=== PATIENT | female | born 1965 | race Caucasian/White ===

== ENCOUNTER 2024-06-21 10:28 | Outpatient (CLI) | payer OTHER, BC, SELFPAY | END 2024-06-21 10:29 | disposition home or self-care (01) | PROVIDERS: PCP Family Medicine; Visit Provider Family Medicine | DX: S29.9XXA Unspecified injury of thorax, initial encounter (principal); V43.52XA Car driver injured in collision with other type car in traffic accident, initial encounter; Y92.410 Unspecified street and highway as the place of occurrence of the external cause | CPT/HCPCS: A0425; A0427 ==

== ENCOUNTER 2024-06-21 11:01 | Emergency (ER) | payer OTHER, BC, SELFPAY ==
[2024-06-21] VITALS (8 sets, daily range): BP systolic 153–169; BP diastolic 81–93; PULSE 97–110; RESP 14–31; TEMP 36.5; O2SAT 94–98; BMI 38.4
--- OUTSIDE RECORDS SUMMARY | 2024-06-21 11:03 | XMS_ITS | Encounter Summary ---
Author Organization [facility] Address [address] [place] [address] Care Team Providers Care Seafood Technology Specialist Name Role Phone Genet Hunt MD Unavailable [phone] Genet Hunt MD Primary Care Provider Zoraida Conner MD Unavailable [phone] Germaine Bernal MD Unavailable [phone] [place] [address] Primary Care Provider Tasneem Mills MD Unavailable [phone] Zoraida Conner MD Unavailable [phone] Star Montanez MD Unavailable [phone] Popeye Love MD Primary Care Provider [phone] Shan Coronel MD Unavailable Donato Mcgarry MD Unavailable [phone] Encounter Details Date Type Department Care Team (Late st Contact Info) Description 08/09/2019 MyC Medical Advice [facility] General Surgery [address] [place] [address] Henny Good Social History Tobacco Use Types Packs/Day Years Used Date Smoking Tobacco: Never Smokeless Tobacco: Never Alcohol Use Standard Drinks/Week Comments Not Currently 0 (1 standard drink = 0.6 oz pur e alcohol) PHQ-2 Answer Date Recorded PHQ-2 Score 0 09/20/2018 Comments Unknown Sex and Gender Information Value Date Recorded Sex Assigned at Female 09/17/2018 11:52 AM CDT Legal Sex Female 8:28 AM CDT Gender Identity Female 09/17/2018 11:52 AM CDT Sexual Orientation Straight 09/17/2018 11 :52 AM CDT COVID-19 Exposure Response Date Recorded In the last month, have you been in contact with someone who was confirmed or suspected to have Coronavirus / COVID-19? No / Unsure 07/26/2019 10:54 AM CDT documented as of this encounter Plan of Treatment Not on file documented as of this encounter Visit Diagnoses Not on filedocumented in this encounter Care Teams Seafood Technology Specialist Relationship Specialty Start Date End Date Genet Hunt MD PCP - General Student in organized health care education/training program 07/29/18 09/11/19 Germaine Bernal MD [address] [address] PCP - oncology 09/12/[address] [address] PCP - General 09/18/19 01/24/20 Popeye Love MD [address] [place] [id number] PCP - General Family Medicine 01/25/20 Genet Hunt MD Resident Student in organized health care education/training program 07/29/18 Zoraida Conner MD [address] [facility] [address] [place], [place] [address] Gynecologic Oncology 07/29/18 Tasneem Mills MD [address] [facility] [address] [place], [place] [address] Assigned Endocrinology Provider 01/12/20 08/03/20 Zoraida Conner MD [address] [facility] [address] [place], [place] [address] Assigned Cancer Care Provider 01/12/20 02/03/20 Star Montanez MD [address] [facility] [address] [place], [place] [address] Assigned Surgical Provider 01/12/20 06/04/20 Shan Coronel MD [address] [facility] [address] [place], [place] [address] Assigned Cancer Care Provider 02/04/20 07/12/21 Donato Mcgarry MD [address] [facility] [address] [place], [place] [address] Assigned Surgical Provider 06/05/20 10/17/21 documented as of this encounter
--- OUTSIDE RECORDS SUMMARY | 2024-06-21 11:03 | XMS_ITS | Encounter Summary ---
Author Organization [facility] Address [address] [place] [address] Care Team Providers Care Analysis Director Name Role Phone Genet Hunt MD Unavailable [phone] Genet Hunt MD Primary Care Provider Zoraida Conner MD Unavailable [phone] Germaine Bernal MD Unavailable [phone] [place] [address] Primary Care Provider Tasneem Mills MD Unavailable [phone] Zoraida Conner MD Unavailable [phone] Star Montanez MD Unavailable [phone] Popeye Love MD Primary Care Provider [phone] Shan Coronel MD Unavailable Donato Mcgarry MD Unavailable [phone] Encounter Details Date Type Department Care Team (Late st Contact Info) Description 08/03/2019 MyC Medical Advice [facility] Cancer Center [facility] [address] [facility] [address] [place] [phone] Mare Stearns RN Social History Tobacco Use Types Packs/Day Years [...] on filedocumented in this encounter Care Teams Analysis Director Relationship Specialty Start Date End Date Genet Hunt MD PCP - General Student in organized health care education/training program 07/29/18 09/11/19 Germaine Bernal MD [address] [address] PCP - oncology 09/12/[address] [address] PCP - General 09/18/19 01/24/20 Popeye Love MD [address] [place] [id number] PCP - General Family Medicine 01/25/20 Genet Hunt MD Resident Student in [facility] health care education/training program 07/29/18 Zoraida Conner MD [address] [facility] [address] [place], [place] [address] Gynecologic Oncology 07/29/18 Tasneem Mills MD [address] [facility] [address] [place], [place] [address] Assigned Endocrinology Provider 01/12/20 08/03/20 Zoraida Conner MD [address] [facility] [address] [place], [place] [address] Assigned Cancer Care Provider 01/12/20 02/03/20 Star Montanez MD [address] [facility] [address] [place], [place] [id number] Assigned Surgical Provider 01/12/20 06/04/20 Shan Coronel MD [address] [facility] [address] [place], [place] [address] Assigned Cancer Care Provider 02/04/20 07/12/21 Donato Mcgarry MD [address] [facility] [address] [place] [address] Assigned Surgical Provider 06/05/20 10/17/21 documented as of this encounter
--- OUTSIDE RECORDS SUMMARY | 2024-06-21 11:03 | XMS_ITS | Clinical Summary ---
Author Organization [facility] Address [facility] [place] [address] Care Team Providers Care Auto Driver Name Role Phone Pcp, No Primary Care Provider Unavailabl e Allergies No known active allergies Medications prochlorperazin e (COMPAZINE) 10 mg tablet Take 10 mg by mouth every 6 hours if needed for Nausea/Vomit ing. Active LORazepam (ATIVAN) 0.5 mg tab Take 0.5 mg by mouth every 4 hours if needed for Nausea/Vomit ing. Active durable medical equipment (DME)Indication s:Open wound of abdominal wall, subsequent encounter 1 inch nugauze x15 rolls refill 3 15 Each 3 01/19/2018 Active Sodium Chloride (SALINE WOUND WASH) 0.9 % solnIndications :Wound infection Rinse wound daily with saline. 3 Bottle 3 09/06/2018 Active rivaroxaban (XARELTO) 20 mg tabletIndicatio ns:Pulmonary embolus, right (HC) Take 1 tablet by mouth once daily with evening meal. 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 Colostomy complication 10/14/2017 Impaired fasting glucose 08/23/2013 HTN (hypertension) 02/24/2012 Resolved Problems Problem Noted Date Diagnosed Date Resolved Date Colostomy complication 10/27/201704/18 Disorder of stoma 10/14/2017 10/14/2017 Immunizations Immunization Administration Dates Next Due Influenza Virus, Unspecified 01/08/2017, 01/05/2008,01/05/2008,2006 Influenza, CCIIV3 (Age >=6 M O) (Egg Free) 01/04/2013 Influenza, IIV3 (Age >=3 years) 01/09/20 17,12/30/2015,01/02/2015,2011,01/07/2011,01/05/2008,01/27/2007 Influenza, IIV4 12/08/2018,12/15/2017 Tdap 01/07/2012 Zoster (Shingrix-RZV, recombinant) 03/01/2019, Family History Medical History Relation Name Comments Other Brother 1 AIDS No Known Problems Brother 2 Cancer-colon Father Coronary artery disease Father Dementia Father Diabetes Father preDM Heart failure Father hypertrophic c ardiomyopathy Diabetes type II Mother Hypertension Mother Relation Name Status Comments Brother 1 Brother 2 Father Mother Social History Tobacco Use Types Packs/Day Years Used Date Smoking Tobacco: Never Smokeless Tobacco: Never Tobacco Cessation:Counseling Given: Yes Alcohol Use Standard Drinks/Week Comments No 0 (1 standard drink = 0.6 oz pur e alcohol) PHQ-2 Answer Date Recorded PHQ-2 Score 0 05/21/2018 Social Connections Answer Date Recorded Frequency of Communication with Friends and Fami ly Not on file 03/18/2021 Financial Resource Strain Answer Date R ecorded Difficulty of Paying Living Expenses Not on file 03/18/2021 Difficulty of Paying Living Expenses Not on file 03/18/2021 Comments No Sex and Gender Information Value Date Recorded Sex Assigned at Not on file Legal Sex Female 6:39 AM HOT STICK WORKER Gender Identity Not on file Sexual Orientation Not on file Occupation Industry Job Start Date Job End Date homemaker Not on file Not on file Not on file Obstetrics History Para Term AB IAB SAB Ectopic Multiple Livin g Live Births 5 4 1 1 4 Date Outcome GA Total Labor Labor/2nd/3rd Weight Sex Type Anes PTL Uyen A1 A5 Name Clin Para Para Para Para SAB Last Filed Vital Signs Vital Sign Reading Time Taken Comments Blood Pressure 125/78 03/28/2019 1:11 PM HOT STICK WORKER Pulse 76 03/28/2019 1:11 PM HOT STICK WORKER Temperature 36.6 C (97.9 F) 12/08/2018 8:39 AM CDT Respiratory Rate 16 05/18/2018 2:19 PM HOT STICK WORKER Oxygen Saturation 99% 03/28/2019 1:11 PM HOT STICK WORKER Inhaled Oxygen Concentration - - Weight 82.4 kg (181 lb 9.6 oz) 03/28/2019 1:11 P M HOT STICK WORKER Height 157.2 cm (5' 1.9) 03/28/2019 1:11 PM HOT STICK WORKER Body Mass Index 33.32 03/28/2019 1:11 PM HOT STICK WORKER Plan of Treatment Health Maintenance Due Date Last Done Comments HIV for age 15-65 1981 Hepatitis C screening for ag e 18-79 02/10/1984 Pneumococcal series for age 50+ (1 of 1 - PCV) 02/10/2016 Lipids for age 45-75 03/02/2017 03/02/2012 Depression screening for age 12+ 08/25/2018 08/25/2017, 08/26/2016, 08/26/2016, Additional history exists BMI (ht and wt on same day) for age 18+ 03/28/2020 03/28/2019, 12/08/2018, 05/23/2018, Additional history exists Mammogram for age 45-75 09/06/2020 09/07/19 20, 08/31/2018, 08/25/2017 Tetanus booster 01/06/2022 01/07/2012, 01/07/2012 COVID-19 vaccine series ( season) 2023 Influenza Vaccine (Season Ended) 2024 12/08/2018, 12/15/2017, 01/08/2017, Additional history exists Tdap Completed 01/07/2012 Zoster (shingles) series for age 50+ Completed 03/01/2019, 12/08/2018 Procedures Procedure Name Priority Date/Time Associated Diagnosis Comments SCAN-MAMMOGRAPHY REPORT 09/07/2019 12:00 AM CDT LIPID PANEL W REFLEX MEASURED LDL Routine 03/02/2012 9:35 AM HOT STICK WORKER Screening, lipid from Last 3 Months or Most Recently Relevant to Health Maintenance Results * SCAN-MAMMOGRAPHY REPORT (09/07/2019 12:00 AM CDT) Anatomical Region Laterality Modality Other us Scanner OTHER Final Result * (ABNORMAL) LIPID PANEL W REFLEX MEASURED LDL (03/02/2012 9:35 AM HOT STICK WORKER) CHOLESTEROL,TOTAL 166 100 - 199 mg/dL 03/02/2012 10:03 AM [facility] TRIGLYCERIDES 175(H) <150 mg/dL 03/02/2012 10:03 AM [facility] HDL CHOLESTEROL 35(L) >40 mg/dL 2 10:03 AM [facility] NON-HDL CHOLESTEROL 131 <145 mg/dl 03/02/2012 10:03 AM [facility] CHOL/HDL RATIO 4.74(H) <4.50 03/02/2012 10:03 AM [facility] LDL CHOLESTEROL 96 <=130 mg/dL 03/02/2012 10:03 AM [facility] PATIENT STATUS FASTING 03/02/2012 10:03 AM [facility] Blood specimen (specimen) BLOOD SPECIMEN / Unknown 03/02/2012 9:35 AM HOT STICK WORKER 03/02/2012 9:35 AM HOT STICK WORKER us Brayan Mcghee MD CHEMISTRY Final Re sult [facility] [address] [place] [address] from Last 3 Months or Most Recently Relevant to Health Maintenance Additional Health Concerns Infection Onset Date Last Indicated ESBL 05/18/2018 05/18/2018 Insurance MEDICAID [employer] [place] [place] Advance Directives * Full Code (Latest Code Status on File) Date Activated Date Inactivated Comments 11/18/2017 9:01 AM 11/19/2017 2:35 AM Question Answer Comments Code Status Discussion: Not Discussed * Full Code Date Activated Date Inactivated Comments 10/14/2017 8:50 PM 10/19/2017 8:26 PM Care Teams Auto Driver Relationship Specialty Start Date End Date Pcp, No . PCP - General 03/27/24
--- OUTSIDE RECORDS SUMMARY | 2024-06-21 11:03 | XMS_ITS | Clinical Summary ---
Author Organization [facility] Address [address] [place] [address] Care Team Providers Care Discharge Door Operator Name Role Phone Deonna Murdock M.D. Primary Care Provider [phone] Source Comments Patient records contain information from all sites at [facility]. For routine questions regarding patient records, call [phone] during business hours, M-F 8:00 AM - 5:00 PM Central Time. Record requests for emergency care only can be directed to [phone] at any time.[facility] Allergies Active Allergy Reactions Criticality Noted Date Comments Adhesive Other (see comments) 05/29/2020 Redness and sore Medications UNABLE TO FIND Med Name: Probiotics daily - [employer] brand Sven 2 daily Active cholecalciferol , vitamin D3, 75 mcg (3,000 unit) tablet Take by mouth daily. 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 Herniorrhaphy Incisional Status Post 06/13/2020 Dermatitis 10/14/2017 Cancer Colon Personal History 09/25/2017 Cancer Staging:Pathologic:Stage IIIC(pT3, pN2b, cM0) - Signed by César Ramachandran M.B.B.SAllyson on 10/01/2022 Overview (06/07/2020): Added automatically from request for surgery [id number] Impaired Fasting Glucose 08/23/2013 Hypertension Essential Primary 02/24/2012 Resolved Problems Problem Noted Date Diagnosed Date Resolved Date Abscess Abdominal Wall 06/13/202007/08 Candidiasis Of Skin And Nail 10/15/2017 10/31/2021 Complication Colostomy 10/14/201707/08 Anemia 10/09/2017 10/31/2021 Other Peritonitis 09/25/2017 07/08/2020 Other Pulmonary Embolism Wit hout Acute Cor Pulmonale 09/23/2017 07/08/2020 Overview (06/07/2020): Without DVT Without DVT Urinary Tract Infection Site Not Specified 09/23/2017 07/08/2020 Acute Respiratory Failure 09/23/2017 Other Specified Diseases Of Intestine 09/16/2017 07/08/2020 Hypokalemia 09/16/2017 07/08/2020 Dehydration 09/16/2017 07/08/2020 Acidosis Unspecified 09/16/2017 021 Nausea And Vomiting 09/15/2017 07/09/19 21 Immunizations Immunization Administration Dates Next Due DTaP, Unspecified 01/07/2012 HepB Adult (HEPLISAV-B) 11/12/2021,10/09/2021 Influenza TIV (IM) 01/08/2017, 6,01/02/2015,2012,01/04/2012,01/07/2011,01/05/2008,1 03/29/2006 Influenza, Injectable, Mdck, Preservative Free, Quadrivalent 01/04/2013 Influenza, Seasonal, Injectable 01/09/20 17,12/30/2015,01/02/2015,2011,01/07/2011,01/09/2010,01/05/2008,1 03/29/2006 Influenza, Unspecified 12/30/2019,2016,01/05/2008,2006 RZV (SHINGRIX) 03/01/2019,12/08/2018 Tdap 12/11/2022,01/07/2012 influenza trivalent vaccine (6 months and older)(PF) 01/07/2024,12/17/2020 influenza vaccine QV(FLUBLOK ) (18 years or older) (PF) 01/07/2022 influenza vaccine quad (FLUZONE/FLUARIX) (6 months and older)(PF) 01/09/2023,12/17/2020,01/08/2020,2018,12/15/2017 Family History Medical History Relation Name Comments Dementia Father Nik Marcelo Rectal cancer Father Nik Marcelo Diabetes Mother Bere Marcelo Hypertension Mother Bere Marcelo Relation Name Status Comments Father Nik Marcelo Mother Bere Marcelo Social History Tobacco Use Types Packs/Day Years Used Date Smoking Tobacco: Never Smokeless Tobacco: Never Tobacco Cessation:Counseling Given: Yes Alcohol Use Standard Drinks/Week Comments Yes 0 (1 standard drink = 0.6 oz pur e alcohol) 1- yearly [facility] Utilities Answer Date Recorded In the past 12 months has e [employer] gas, oil, or water indoo.rs threatened to shut off services in your home? No 02/25/2024 Humiliation, Afraid, Rape, and Kick questionnair e Answer Date Recorded Within the last year, have y ou been afraid of your partner or ex-partner? No 11/06/2021 Within the last year, have y ou been humiliated or emotionally abused in other ways by your partner or ex-partner? No Within the last year, have y ou been kicked, hit, slapped, or otherwise physically hurt by your partner or ex-partner? No 11/06/2021 Within the last year, have y ou been raped or forced to have any kind of sexual activity by your partner or ex-partner? No 11/06/2021 Social Connection and Isolation Panel [NHANES] A nswer Date Recorded In a typical week, how many times do you talk on the phone with family, friends, or neighbors? Once a week 11/07/19 22 How often do you get togethe r with friends or relatives? Once a week 11/06/2021 How often do you attend chur ch or jainism services? 1 to 4 times per year 11/06/2021 Do you belong to any clubs o r organizations such as confucianism groups, unions, fraternal or athletic groups, or school groups? No 11/06/2021 How often do you attend meet ings of the clubs or organizations you belong to? Never 11/06/2021 Are you , , di vorced, , never , or living with a partner? 11/06/2021 AUDIT-C Answer Date Recorded Q1: How often do you have a drink containing alc ohol? Never 11/06/2021 Average Number of Drinks Not on file 022 Frequency of Binge Drinking Not on file 10/20 Overall Financial Resource Strain (CARDIA) Answe r Date Recorded How hard is it for you to pa y for the very basics like food, housing, medical care, and heating? Not hard at all 12/06/2022 PHQ-2 Answer Date Recorded PHQ-2 Score 0 03/03/2024 [facility] - Occupational Stress Questionnaire Answer Date Recorded Do you feel stress - tense, restless, nervous, or anxious, or unable to sleep at night because your mind is troubled all the time - these days? Only a little 11/06/2021 Exercise Vital Sign Answer Date Recorde d On average, how many days pe r week do you engage in moderate to strenuous exercise (like a brisk walk)? 3 days 12/27/2023 On average, how many minutes do you engage in exercise at this level? 20 min 12/27/2023 Hunger Vital Sign Answer Date Recorded Within the past 12 months, y ou worried that your food would run out before you got the money to buy more. Never true 02/25/20 24 Within the past 12 months, t he food you bought just didn't last and you didn't have money to get more. Never true 02/25/2024 PRAPARE - Transportation Answer Date Re corded In the past 12 months, has l ack of transportation kept you from medical appointments or from getting medications? No 08/2023 In the past 12 months, has l ack of transportation kept you from meetings, work, or from getting things needed for daily living? No 02/25/2024 Nutrition Answer Date Recorded On average, how many serving s of fruits and vegetables do you eat per day (serving size is equal to 1 cup or approximately the size of a tennis ball)? 0-2 12/27/2023 Dental Answer Date Recorded Dental: Regular Dentist Yes 06/09/19 Employment Answer Date Recorded Employment status N/A 12/27/2023 Housing Stability Answer Date Recorded What is your living situation today? [facility] 02/25/2024 Education Answer Date Recorded What is the highest level of school you have completed or the highest degree you have received? 12th grade 06/08/2020 Comments No Sex and Gender Information Value Date Recorded Sex Assigned at Female 12/02/2020 7:53 PM CDT Legal Sex Female 9:24 AM ABAP DEVELOPER Gender Identity Female 05/29/2020 7:34 PM ABAP DEVELOPER Sexual Orientation Straight 05/29/2020 7: 34 PM ABAP DEVELOPER Last Filed Vital Signs Vital Sign Reading Time Taken Comments Blood Pressure 117/86 03/03/2024 2:45 PM ABAP DEVELOPER Pulse 94 03/03/2024 2:45 PM ABAP DEVELOPER Temperature 36.8 C (98.3 F) 03/03/2024 2:45 PM ABAP DEVELOPER Respiratory Rate 18 03/03/2024 2:45 PM ABAP DEVELOPER Oxygen Saturation 97% 03/03/2024 2:45 PM ABAP DEVELOPER Inhaled Oxygen Concentration - - Weight 98.4 kg (217 lb) 03/03/2024 2:45 PM ABAP DEVELOPER Height 157 cm (5' 1.81) 03/03/2024 2:45 PM ABAP DEVELOPER Body Mass Index 39.93 03/03/2024 2:45 PM ABAP DEVELOPER Plan of Treatment Upcoming Encounters Date Type Department Care Team (Late st Contact Info) Description 07/05/2024 8:30 AM CDT Appointment Department of Laboratory Medicine in [place], [place] [address] [place] [address] César Ramachandran M.D. [address] [place] [address] Health Maintenance Due Date Last Done Comments Hepatitis C Screening 1965 Pneumococcal vaccine (50+ years) (1 of 1 - PCV) 02/10/2016 COVID-19 Vaccine ( - season) 2023 07/21/2021, 12/06/2020, 11/15/2020 Depression Screening (Annual PHQ-2) 03/22/2024 Fasting Glucose for Diabetes Screening 01/04/2025 01/05/2024, 12/24/2023, 10/04/2023, Additional history exists Mammogram 01/04/2025 01/05/2024, 10/20, 10/01/2021, Additional history exists Office Visit for Blood Pressure Check / Re-check 03/03/2025 03/03/2024, 12/11/2022, 12/11/2022 Visit: Chronic Disease, age 18+ 03/03/2025 03/03/2024, 10/09/2021 Lipid (Cholesterol) Screening 06/13/2025 06/13/2020 DTaP,Tdap,and Td Vaccines (4 - Td or Tdap) 12/11/2032 12/11/2022, 01/07/2012, 01/07/2012 Zoster Vaccines Completed 03/01/2019, 12/08/2018 Colonoscopy Discontinued 11/28/2020 Colorectal Cancer Surveillance Discontinued Hepatitis B Vaccines Completed 11/12/2021, 10/10/19 22 Influenza Vaccine Completed 01/07/2024, , 01/07/2022, Additional history exists CT Colonography Discontinued Cologuard Discontinued IPV Vaccines Aged Out No longer eligi ble based on patient's age to complete this topic Medical Devices Implanted Type Area Search Optimization Analyst Device Identifier Shelf Expiration Date Model / Serial / Lot Hardware E.G. Pins/Screws/Ro ds Hardware e.g. pins/screws/ rods Mouth Description:RETAINER Mesh Or Patch Mesh or Patch Abdomen Explanted Type Area Search Optimization Analyst Device Identifier Shelf Expiration Date Model / Serial / Lot Implantable Port Explanted:Qty: 1 on 10/22/2021 by Silvio Eduardo M.D. at [facility] Implantable Port Left: Chest [employer] 0 / / Procedures Procedure Name Priority Date/Time Associated Diagnosis Comments COMPREHENSIVE METABOLIC PANEL, S/P Routine 01/05/2024 10:45 AM CDT Malignant Neoplasm Of Colon (HCC) BI BREAST SCREENING BILATERAL WITH TOMOSYNTHESIS RAD - Routine (most inpatients and all outpatients) 01/05/2024 10:33 AM CDT Screening Mammogram Average Risk Patient COLONOSCOPY 11/28/2020 11:55 AM CDT LIPID PANEL, S Routine 06/13/2020 11:23 AM CDT Health Maintenance Examination Adult from Last 3 Months or Most Recently Relevant to Health Maintenance Results * (ABNORMAL) Comprehensive Metabolic Panel (01/05/2024 10:45 AM CDT) Pathologist [facility] Potassium, P 3.9 3.6 - 5.2 mmol/L 01/05/2024 11:21 AM CDT NPRG Sodium, P 136 135 - 145 mmol/L 01/05/2024 11:21 AM CDT NPRG Chloride, P 101 98 - 107 mmol/L 01/05/2024 11:21 AM CDT NPRG Bicarbonate, P 23 22 - 29 mmol/L 01/05/2024 11:21 AM CDT NPRG Anion Gap, P 12 7 - 15 01/05/2024 11:21 AM CDT NPRG BUN (Blood Urea Nitrogen), P 18 6 - 21 mg/dL 01/05/2024 11:21 AM CDT NPRG Creatinine 0.90 0.59 - 1.04 mg/dL 01/05/2024 11:21 AM CDT NPRG Estimated GFR (eGFR) 75 >=60 mL/min/BS A 01/05/2024 11:21 AM CDT NPRG Comment: Estimated GFR calculated using the 2020 CKD_EPI creatinine equation. Calcium, Total, P 9.9 8.6 - 10.0 mg/dL 01/05/2024 11:21 AM CDT NPRG Glucose, P 93 70 - 140 mg/dL 01/05/2024 11:21 AM CDT NPRG Protein, Total, P 7.9 6.3 - 7.9 g/dL 01/05/2024 11:21 AM CDT NPRG Albumin, P 4.6 3.5 - 5.0 g/dL 01/05/2024 11:21 AM CDT NPRG Aspartate Aminotransferase (AST), P 47(H) 8 - 43 U/L 01/05/2024 11:21 AM CDT NPRG Alkaline Phosphatase, P 73 35 - 104 U/L 01/05/2024 11:21 AM CDT NPRG Alanine Aminotransferase (ALT), P 53(H) 7 - 45 U/L 01/05/2024 11:21 AM CDT NPRG Bilirubin, Total, P 1.2 0.0 - 1.2 mg/dL 01/05/2024 11:21 AM CDT NPRG Blood (Blood, Venous) 01/05/2024 10:45 AM CDT 01/05/2024 10:47 AM CDT us César Ramachandran M.D. LAB BLOOD ADD-ON Final Resul t [facility] [address] [place] [address], [facility] NPRG [facility] [address] [place] [address] * BI Breast Screening Bilateral with Tomosynthesis (01/05/2024 10:33 AM CDT) Anatomical Region Laterality Modality Breast, Breast Imaging RST L OS, Breast Imaging ARZ LOS, Breast Imaging FLA LOS Bilateral Mammography Impressions 01/05/2024 12:23 PM CDT Benign. RECOMMENDATION: Annual Screening Mammogram ASSESSMENT: BI-RADS: 2: Benign. Narrative 01/05/2024 12:23 PM CDT EXAM: BI BREAST SCREENING BILATERAL WITH TOMOSYNTHESIS Current study was evaluated with a Computer Aided Detection (CAD) system. INDICATION: Screening mammogram. COMPARISON: Prior exam(s) were available and reviewed for comparison. DENSITY: b. There are scattered areas of fibroglandular density. FINDINGS: No findings of malignancy. No significant change since prior exam. Procedure Note Walker Harp M.D. - 01/05/2024 EXAM: BI BREAST SCREENING BILATERAL WITH TOMOSYNTHESIS Current study was evaluated with a Computer Aided Detection (CAD) system. INDICATION: Screening mammogram. COMPARISON: Prior exam(s) were available and reviewed for comparison. DENSITY: b. There are scattered areas of fibroglandular density. FINDINGS: No findings of malignancy. No significant change since priorexam. IMPRESSION: Benign. RECOMMENDATION: Annual Screening Mammogram ASSESSMENT: BI-RADS: 2: Benign. us Deonna Murdock M.D. [facility] BI PROCEDURES Final Res ult * COLONOSCOPY (11/28/2020 11:55 AM CDT) Narrative Procedure Note Sampson Redmond M.D. - 11/28/2020 11:55 AM CDT [facility] Patient Name: Cathie Zeng Procedure Date: 11/28/2020 11:55 AM Date of : 1965 Age: 55 Gender: Female Procedure: Colonoscopy Providers: Sampson Redmond MD, Deonna Murdock (Ordering Provider) Referring Provider: Deonna Murdock Pre-op Diagnoses: High risk colon cancer surveillance: Personal history of colon cancer Post-op Diagnoses: - Friability with contact bleeding in the sigmoid colon. Biopsied. - Friability with contact bleeding in the descending colon.Biopsied. - Stool in the rectum. - The examination was otherwise normal. Recommendation: - Discharge patient to home. - Resume previous diet. - Continue present medications. - Await pathology results. Findings: The perianal and digital rectal examinations were normal. A diffuse area of mildly friable mucosa with contact bleeding wasfound in the sigmoid colon. Biopsies were taken with a cold forceps for histology. Verification of patient identification for the specimenwas done by the physician and nurse using the patient's name, dateand medical record number. Estimated blood loss was minimal. A diffuse area of mildly friable mucosa with contact bleeding wasfound in the descending colon. Biopsies were taken with a cold forceps for histology. Verification of patient identification for the specimenwas done by the physician and nurse using the patient's name, dateand medical record number. Estimated blood loss was minimal. A moderate amount of stool was found in the rectum, makingvisualization difficult. Lavage of the area was performed using a moderate amountof sterile water, resulting in clearance with fair visualization. The exam was otherwise without abnormality. Exudate was found in the sigmoid colon and in the descending colon. Medicines: Monitored Anesthesia Care Estimated Blood Loss: Estimated blood loss was minimal. Complications: No immediate complications. Procedure Details: The patient was seen, evaluated, and history reviewed. Airway and heart and lung exams were performed and were satisfactory for plannedsedation care. The risks, benefits and alternatives for the procedure and sedation were discussed andinformed consent was obtained. A procedural pause was conducted in the presence of assisting personnelto verify the correct patient identity and procedureto be performed. Throughout the procedure, the patient's blood pressure, pulse, and oxygen saturations were monitored continuously. The Colonoscope was introduced under directvision through the anus and advanced to the surgicalstoma. The colonoscopy was performed with moderate difficulty due to restricted mobility of thecolon. Successful completion of the procedure was aidedby lavage. The patient tolerated the procedure well. The quality of the bowel preparation was adequateto identify polyps. The quality of the bowel preparation was evaluated using the BBPS ([place] Bowel Preparation Scale) with scores of: RightColon = 3, Transverse Colon = 3 and Left Colon = 3(entire mucosa seen well with no residual staining, small fragments of stool or opaque liquid). The totalBBPS score equals 9. Sedation: Anesthesia was administered by an anesthesia professional. Thefollowing parameters were monitored: oxygen saturation, heart rate, blood pressure, respiratory rate, EKG, adequacy of pulmonary ventilation,and response to care. Sampson Redmond MD 11/28/2020 12:27:26 PM This report has been signed electronically. Number of Addenda: 0 Note Initiated On: 11/28/2020 11:55 AM us Deonna Murdock M.D. GI PROCEDURE ORDERABLES Fin al Result * (ABNORMAL) Lipid Panel (06/13/2020 11:23 AM CDT) Cholesterol, Total 198 mg/dL 2020 12:47 PM CDT NPRG Comment: ----REFERENCE VALUE---- Desirable: < 200 Borderline high: 200 - 239 High: > or = 240 Triglycerides 176(H) mg/dL 06/13/2020 12:47 PM CDT NPRG Comment: ----REFERENCE VALUE---- Normal: <150 Borderline high: 150-199 High: 200-499 Very high: > or =500 Cholesterol, HDL 88 >=50 mg/dL 06/14/19 12:47 PM CDT NPRG Calculated LDL 75 mg/dL 06/13/2020 12:47 PM CDT NPRG Comment: ----REFERENCE VALUE---- Desirable: <100 Above Desirable: 100-129 Borderline high: 130-159 High: 160-189 Very high: > or =190 Cholesterol, Non-HDL, Calculated 110 mg/dL 06/13/2020 12:47 PM CDT NPRG Comment: ----REFERENCE VALUE---- Desirable: <130 Above Desirable: 130-159 Borderline high: 160-189 High: 190-219 Very high: > or =220 Blood (Blood, Venous) 06/13/2020 11:23 AM CDT 06/13/2020 12:14 PM CDT us Deonna Murdock M.D. LAB BLOOD ADD-ON Final Resu lt [facility] [address] [place] [address], [facility] NPRG [facility] [address] [place] [address] from Last 3 Months or Most Recently Relevant to Health Maintenance Insurance [facility] [place] [address] Care Teams Discharge Door Operator Relationship Specialty Start Date End Date Deonna Murdock M.D. [address] [place] [phone] PCP - General Family Medicine 05/23/20
--- OUTSIDE RECORDS SUMMARY | 2024-06-21 11:03 | XMS_ITS | Encounter Summary ---
Author Organization [facility] Address [address] [facility] [address] [place] [address] Care Team Providers Care Hose Maker Name Role Phone Evantrav Genet Kumar MD Unavailable [phone] Zoraida Conner MD Unavailable [phone] Germaine Bernal MD Unavailable [phone] [facility] Primary Care Provider Tasneem Mills MD Unavailable [phone] Zoraida Conner MD Unavailable Star Montanez MD Unavailable [phone] Popeye Love MD Primary Care Provider [phone] Shan Coronel MD Unavailable Donato Mcgarry MD Unavailable [phone] Encounter Details Date Type Department Care Team (Late st Contact Info) Description 09/18/2019 MyC Medical Advice M [facility] Colon and Rectal Surgery [address] [phone] Cecelia Cobian RN Social History Tobacco Use Types Packs/Day [...] have Coronavirus / COVID-19? No / Unsure 09/18/2019 11:10 AM CDT documented as of this encounter Plan of Treatment Not on file documented as of this encounter Visit Diagnoses Not on filedocumented in this encounter Care Teams Hose Maker Relationship Specialty Start Date End Date Germaine Bernal MD [address] [address] PCP - oncology 09/12/[address] [address] PCP - General 09/18/19 01/24/20 Popeye Love MD [address] [address] PCP - General Family Medicine 01/25/20 Genet Hunt MD Resident Student in organized health care education/training program 07/29/18 Zoraida Conner MD [address] [facility] [address] [place], [place] [address] Gynecologic Oncology 07/29/18 Tasneem Mills MD [address] [facility] [address] [place], [place] [address] Assigned Endocrinology Provider 01/12/20 08/03/20 Zoraida Conner MD [address] [facility] [address] [place], [place] [address] Assigned Cancer Care Provider 01/12/20 02/03/20 Star Montanez MD [address] [facility] [address] [facility] [address] [place], [place] [address] Assigned Surgical Provider 01/12/20 06/04/20 Shan Coronel MD [address] [facility] [address] [place], [place] [address] Assigned Cancer Care Provider 02/04/20 07/12/21 Donato Mcgarry MD [address] [facility] [address] [facility] [address] [place], [place] [address] Assigned Surgical Provider 06/05/20 10/17/21 documented as of this encounter
--- OUTSIDE RECORDS SUMMARY | 2024-06-21 11:04 | XMS_ITS | Clinical Summary ---
Author Organization [place] Address [address] [facility] 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 Candidal intertrigo 10/15/2017 Colostomy complication 10/14/2017 Stoma dermatitis 10/14/2017 Anemia 10/09/2017 Adenocarcinoma of large intestine 09/25/2017 Fecal peritonitis 09/25/2017 Acute respiratory failure 09/23/2017 Pulmonary embolism 09/23/2017 Overview (07/17/2019): Without DVT Urinary tract infection 09/23/2017 Colonic mass 09/16/2017 Dehydration 09/16/2017 Hypokalemia 09/16/2017 Lactic acidosis 09/16/2017 Large bowel obstruction 09/16/2017 Intractable nausea and vomiting 09/15/2017 Impaired fasting glucose 08/23/2013 Essential hypertension 02/24/2012 Immunizations Name Administration Dates Next Due DTaP, Unspecified 01/07/2012 Flu, Unspecified 01/08/2017,01/05/2008, 7 Influenza (IIV3) PF 01/08/2017, 6,01/02/2015,2012,01/04/2012,01/07/2011,01/05/2008,1 03/29/2006 Influenza Vaccine >6 months,quad, PF 12/08/2018, 12/15/2017 Zoster recombinant adjuvante d (Shingrix) 03/01/2019,12/08/2018 Family History Medical History Relation Comments Colon Cancer Brother 1 Hypertension Brother 1 HIV/AIDS Brother 2 Colon Cancer Father Diabetes Father Heart Failure Father Hypertension Father Prostate Cancer Father Diabetes Mother Heart Disease Mother Hypertension Mother Relation Status Comments Brother 1 Brother 2 Father Mother Social History Tobacco Use Types Packs/Day Years Used Date Smoking Tobacco: Never Smokeless Tobacco: Never Alcohol Use Standard Drinks/Week Comments Not Currently 0 (1 standard drink = 0.6 oz pur e alcohol) PHQ-2 Answer Date Recorded PHQ-2 Score 0 04/16/2020 Adolescent Education Answer Date Record ed Getting School Help Needed Not on file 12/11 Comments No Sex and Gender Information Value Date Recorded Sex Assigned at Female 09/17/2018 11:52 AM CDT Legal Sex Female 8:28 AM CDT Gender Identity Female 09/17/2018 11:52 AM CDT Sexual Orientation Straight 09/17/2018 11 :52 AM CDT Last Filed Vital Signs Vital Sign Reading Time Taken Comments Blood Pressure 137/82 04/16/2020 12:14 PM FURNACE SETTER Pulse 77 04/16/2020 12:14 PM FURNACE SETTER Temperature 36.4 C (97.6 F) 04/16/2020 12:14 PM FURNACE SETTER Respiratory Rate 16 01/25/2020 6:00 PM FURNACE SETTER Oxygen Saturation 98% 04/16/2020 12: 14 PM FURNACE SETTER Inhaled Oxygen Concentration - - Weight 71.6 kg (157 lb 14.4 oz) 021 12:14 PM FURNACE SETTER Height 157.5 cm (5' 2) 04/16/2020 12:1 4 PM FURNACE SETTER Body Mass Index 28.88 04/16/2020 12:14 PM FURNACE SETTER Plan of Treatment Not on file Care Teams Liquefaction And Regasification Helper Relationship Specialty Start Date End Date Germaine Bernal MD [employer] [address] [place] [address] PCP - oncology 09/12/19 Popeye Love MD [employer] [address] [place] [address] PCP - General Family Medicine 01/25/20 Genet Hunt MD Resident Student in organized health care education/training program 07/29/18 Zoraida Conner MD [address] [place] [address] Gynecologic Oncology 07/29/18
--- OUTSIDE RECORDS SUMMARY | 2024-06-21 11:04 | XMS_ITS | Encounter Summary ---
Author Organization [place] Address [address] [facility] [place] [address] Care Team Providers Care Office Analyst Name Role Phone Genet Hunt MD Unavailable [phone] Genet Hunt MD Primary Care Provider Zoraida Conner MD Unavailable [phone] Germaine Bernal MD Unavailable [phone] [place] [address] Primary Care Provider Tasneem Mills MD Unavailable [phone] Zoraida Conner MD Unavailable [phone] Star Montanez MD Unavailable [phone] Popeye Love MD Primary Care Provider [phone] Shan Coronel MD Unavailable Donato Mcgarry MD Unavailable [phone] Encounter Details Date Type Department Care Team (Late st Contact Info) Description 07/05/2019 MyC Medical Advice [facility] Colon and Rectal Surgery [address] [facility] 4th [place] [address] Chuck Briceño, EMT Social History Tobacco Use Types Packs/Day Years [...] Orientation Straight 09/17/2018 11 :52 AM CDT documented as of this encounter Plan of Treatment Not on file documented as of this encounter Visit Diagnoses Not on filedocumented in this encounter Care Teams Office Analyst Relationship Specialty Start Date End Date Genet Hunt MD PCP - General Student in organized health care education/training program 07/29/18 09/11/19 Germaine Bernal MD [address] [address] PCP - oncology 09/12/[address] [address] PCP - General 09/18/19 01/24/20 Popeye Love MD [address] [place] [address] 195 [place], [place] [id number] PCP - General Family Medicine 01/25/20 Genet Hunt MD Resident Student in organized health care education/training program 07/29/18 Zoraida Conner MD [address] [facility] 88 [place], [place] [address] Gynecologic Oncology 07/29/18 Tasneem Mills MD [address] [facility] 101 [place], [place] [address] Assigned Endocrinology Provider 01/12/20 08/03/20 Zoraida Conner MD [address] [facility] 88 [place], [place] [address] Assigned Cancer Care Provider 01/12/20 02/03/20 Star Montanez MD [address] [facility] 195 [place], [place] [address] Assigned Surgical Provider 01/12/20 06/04/20 Shan Coronel MD [address] [facility] 480 [place], [place] [address] Assigned Cancer Care Provider 02/04/20 07/12/21 Donato Mcgarry MD [address] [facility] [address] [place], [place] [address] Assigned Surgical Provider 06/05/20 10/17/21 documented as of this encounter
--- OUTSIDE RECORDS SUMMARY | 2024-06-21 11:04 | XMS_ITS | Encounter Summary ---
Author Organization [place] Address [address] [facility] [place] [address] Care Team Providers Care Internet Database Specialist Name Role Phone Evantrav Genet Kumar MD Unavailable [phone] Zoraida Conner MD Unavailable Germaine Bernal MD Unavailable [phone] [facility] Primary Care Provider Tasneem Mills MD Unavailable [phone] Zoraida Conner MD Unavailable Star Montanez MD Unavailable [phone] Popeye Love MD Primary Care Provider [phone] Shan Coronel MD Unavailable Donato Mcgarry MD Unavailable [phone] Encounter Details Date Type Department Care Team (Late st Contact Info) Description 01/08/2020 [facility] [address] 3rd [place] [address] Kelsie Hendrix, RN Social History Tobacco Use Types Packs/Day [...] have Coronavirus / COVID-19? No / Unsure 01/08/2020 9:26 AM CDT documented as of this encounter Plan of Treatment Not on file documented as of this encounter Visit Diagnoses Not on filedocumented in this encounter Care Teams Internet Database Specialist Relationship Specialty Start Date End Date Germaine Bernal MD [address] [address] PCP - oncology 09/12/[address] [address] PCP - General 09/18/19 01/24/20 Popeye Love MD [address] [facility] 195 [place], [place] [address] PCP - General Family Medicine 01/25/20 Genet Hunt MD Resident Student in organized health care education/training program 07/29/18 Zoraida Conner MD [address] [facility] 88 [place] [address] Gynecologic Oncology 07/29/18 Tasneem Mills MD [address] [facility] 101 [place] [address] Assigned Endocrinology Provider 01/12/20 08/03/20 Zoraida Conner MD [facility] [place] [address] Assigned Cancer Care Provider 01/12/20 02/03/20 Star Montanez MD [address] [facility] 195 [place] [address] Assigned Surgical Provider 01/12/20 06/04/20 Shan Coronel MD [address] [facility] 480 [place] [address] Assigned Cancer Care Provider 02/04/20 07/12/21 Donato Mcgarry MD [address] [facility] 450 [place] [address] Assigned Surgical Provider 06/05/20 10/17/21 documented as of this encounter
--- OUTSIDE RECORDS SUMMARY | 2024-06-21 11:04 | XMS_ITS | Encounter Summary ---
Author Organization [place] Address [address] [facility] [place] [address] Care Team Providers Care Manager Of Organizational Development Name Role Phone Genet Hunt MD Unavailable [phone] Genet Hunt MD Primary Care Provider Zoraida Conner MD Unavailable [phone] Germaine Bernal MD Unavailable [phone] [place] [address] Primary Care Provider Tasneem Mills MD Unavailable [phone] Zoraida Conner MD Unavailable [phone] Star Montanez MD Unavailable [phone] Popeye Love MD Primary Care Provider [phone] Shan Coronel MD Unavailable Donato Mcgarry MD Unavailable [phone] Reason for Visit * Reason Onset Date Comments Erroneous encounter-disregard 08/02/2018 Encounter Details Date Type Department Care Team (Late st Contact Info) Description 08/02/2018 Telephone [facility] [place] [address] [address] [address] [place] [phone] Jennie Vaughn, [address] [place], [place] [address] Erroneous encounter-disregard Social History Tobacco Use Types Packs/Day Years Used Date Smoking Tobacco: Never Alcohol Use Standard Drinks/Week Comments Not Currently 0 (1 standard drink = 0.6 oz pur e alcohol) Comments Unknown Sex and Gender Information Value [...] on filedocumented in this encounter Care Teams Manager Of Organizational Development Relationship Specialty Start Date End Date Genet Hunt MD PCP - General Student in organized health care education/training program 07/29/18 09/11/19 Germaine Bernal MD [address] [address] PCP - oncology 09/12/[address] [address] PCP - General 09/18/19 01/24/20 Popeye Love MD [address] [place] [address] PCP - General Family Medicine 01/25/20 Genet Hunt MD Resident Student in organized health care education/training program 07/29/18 Zoraida Conner MD [address] [facility] 88 [place] [address] Gynecologic Oncology 07/29/18 Tasneem Mills MD [facility] [place] [address] Assigned Endocrinology Provider 01/12/20 08/03/20 Zoraida Conner MD [address] [facility] [place] [address] Assigned Cancer Care Provider 01/12/20 02/03/20 Star Montanez MD [address] [facility] [address] [place], [place] [address] Assigned Surgical Provider 01/12/20 06/04/20 Shan Coronel MD [address] [facility] 480 [place], [place] [address] Assigned Cancer Care Provider 02/04/20 07/12/21 Donato Mcgarry MD [address] [facility] 450 [place], [place] [address] Assigned Surgical Provider 06/05/20 10/17/21 documented as of this encounter
--- OUTSIDE RECORDS SUMMARY | 2024-06-21 11:04 | XMS_ITS ---
Author Organization [place] Address [address] [facility] 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 Candidal intertrigo 10/15/2017 Colostomy complication 10/14/2017 Stoma dermatitis 10/14/2017 Anemia 10/09/2017 Adenocarcinoma of large intestine 09/25/2017 Fecal peritonitis 09/25/2017 Acute respiratory failure 09/23/2017 Pulmonary embolism 09/23/2017 Overview (07/17/2019): Without DVT Urinary tract infection 09/23/2017 Colonic mass 09/16/2017 Dehydration 09/16/2017 Hypokalemia 09/16/2017 Lactic acidosis 09/16/2017 Large bowel obstruction 09/16/2017 Intractable nausea and vomiting 09/15/2017 Impaired fasting glucose 08/23/2013 Essential hypertension 02/24/2012 Current Oncology Plans No current plan information found. Past Plans No past plan information found. Radiation Treatments * No radiation treatments are documented for this patient in [facility]. Treatments may have been administered in another system. Lifetime Dose Tracking * Chemical Lifetime Dose Automatic Entry Manual Entr y DLP 200 mGy*cm 200 mGy*cm 0 mGy*cm
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
[2024-06-21] MEDS: IBUPROFEN 400 MG TABLET 800 MG PO (11:33)
--- OUTSIDE RECORDS SUMMARY | 2024-06-21 12:01 | XMS_ITS | Encounter Summary ---
Author Organization [place] Address [address] [facility] [place] [address] Care Team Providers Care Biostatistician Name Role Phone Genet Hunt MD Unavailable [phone] Genet Hunt MD Primary Care Provider Zoraida Conner MD Unavailable [phone] Germaine Bernal MD Unavailable [phone] [place] [address] Primary Care Provider Tasneem Mills MD Unavailable [phone] Zoraida Conner MD Unavailable [phone] Star Montanez MD Unavailable [phone] Popeye Love MD Primary Care Provider [phone] Shan Coronel MD Unavailable Donato Mcgarry MD Unavailable [phone] Encounter Details Date Type Department Care Team (Late st Contact Info) Description 07/05/2019 MyC Medical Advice [facility] Colon and Rectal Surgery [address] [facility] 4th [place] [address] Chuck Briceño, EMT Social History [...] on filedocumented in this encounter Care Teams Biostatistician Relationship Specialty Start Date End Date Genet Hunt MD PCP - General Student in organized health care education/training program 07/29/18 09/11/19 Germaine Bernal MD [address] [address] PCP - oncology 09/12/[address] [address] PCP - General 09/18/19 01/24/20 Popeye Love MD [address] [place] [address] 195 [place], [place] [id number] PCP - General Family Medicine 01/25/20 Genet Hunt MD Resident Student in organized health care education/training program 07/29/18 Zoraida Conner MD [address] [facility] 88 [place], [place] [address] Gynecologic Oncology 07/29/18 Tasneem Mills MD [address] [facility] 101 [place], [place] [address] Assigned Endocrinology Provider 01/12/20 08/03/20 Zoraida Conner MD [address] [facility] 88 [place], [place] [address] Assigned Cancer Care Provider 01/12/20 02/03/20 Star Montanez MD [address] [facility] 195 [place], [place] [address] Assigned Surgical Provider 01/12/20 06/04/20 Shan Coronel MD [address] [facility] 480 [place], [place] [address] Assigned Cancer Care Provider 02/04/20 07/12/21 Donato Mcgarry MD [address] [facility] 450 [place], [place] [address] Assigned Surgical Provider 06/05/20 10/17/21 documented as of this encounter
--- OUTSIDE RECORDS SUMMARY | 2024-06-21 12:01 | XMS_ITS | Encounter Summary ---
Author Organization [place] Address [address] [facility] [place] [address] Care Team Providers Care Patient Relations Coordinator Name Role Phone Evantrav Genet Kumar MD Unavailable Zoraida Conner MD Unavailable [phone] Germaine Bernal MD Unavailable [phone] [facility] Primary Care Provider Tasneem Mills MD Unavailable [phone] Zoraida Conner MD Unavailable Star Montanez MD Unavailable [phone] Popeye Love MD Primary Care Provider [phone] Shan Coronel MD Unavailable Donato Mcgarry MD Unavailable [phone] Encounter Details Date Type Department Care Team (Late st Contact Info) Description 09/18/2019 MyC Medical Advice [facility] Colon and Rectal Surgery [address] [phone] Cecelia Cobian RN Social History Tobacco Use [...] on filedocumented in this encounter Care Teams Patient Relations Coordinator Relationship Specialty Start Date End Date Germaine Bernla MD [address] [address] PCP - oncology 09/12/[address] [address] PCP - General 09/18/19 01/24/20 Popeye Love MD [address] [address] PCP - General Family Medicine 01/25/20 Genet Hunt MD Resident Student in organized health care education/training program 07/29/18 Zoraida Conner MD 516 [facility] 88 [place], [place] [address] Gynecologic Oncology 07/29/18 Tasneem Mills MD [address] [facility] 101 [place], [place] [address] Assigned Endocrinology Provider 01/12/20 08/03/20 Zoraida Conner MD [facility] [address] [place], [place] [address] Assigned Cancer Care Provider 01/12/20 02/03/20 Star Montaenz MD [facility] [address] [place], [place] [address] Assigned Surgical Provider 01/12/20 06/04/20 Shan Coronel MD [address] [facility] [address] [place], [place] [address] Assigned Cancer Care Provider 02/04/20 07/12/21 Donato Mcgarry MD [facility] [address] [place], [place] [address] Assigned Surgical Provider 06/05/20 10/17/21 documented as of this encounter
--- OUTSIDE RECORDS SUMMARY | 2024-06-21 12:01 | XMS_ITS | Encounter Summary ---
Author Organization [place] Address [address] [facility] [place] [address] Care Team Providers Care Sound Equipment Mechanic Name Role Phone Genet Hunt MD Unavailable [phone] Genet Hunt MD Primary Care Provider Zoraida Conner MD Unavailable [phone] Germaine Bernal MD Unavailable [phone] [place] [address] Primary Care Provider Tasneem Mills MD Unavailable [phone] Zoraida Conner MD Unavailable [phone] Star Montanez MD Unavailable [phone] Popeye Love MD Primary Care Provider [phone] Shan Coronel MD Unavailable Donato Mcgarry MD Unavailable [phone] Encounter Details Date Type Department Care Team (Late st Contact Info) Description 08/03/2019 MyC Medical Advice [facility] [address] [place] [address] [place] [phone] Mare Stearns RN Social History Tobacco Use [...] on filedocumented in this encounter Care Teams Sound Equipment Mechanic Relationship Specialty Start Date End Date Genet Hunt MD PCP - General Student in organized health care education/training program 07/29/18 09/11/19 Germaine Bernal MD [address] [address] PCP - oncology 09/12/[address] [address] PCP - General 09/18/19 01/24/20 Popeye Love MD [address] [place] [address] PCP - General Family Medicine 01/25/20 Genet Hunt MD Resident Student in [facility] health care education/training program 07/29/18 Zoraida Conner MD [address] [facility] 88 [place], [place] [address] Gynecologic Oncology 07/29/18 Tasneem Mills MD [address] [facility] 101 [place], [place] [address] Assigned Endocrinology Provider 01/12/20 08/03/20 Zoraida Conner MD [address] [facility] 88 [place], [place] [address] Assigned Cancer Care Provider 01/12/20 02/03/20 Star Montanez MD [address] [facility] 195 [place], [place] [address] Assigned Surgical Provider 01/12/20 06/04/20 Shan Coronel MD [address] [facility] 480 [place], [place] [address] Assigned Cancer Care Provider 02/04/20 07/12/21 Donato Mcgarry MD [address] [facility] 450 [place] [address] Assigned Surgical Provider 06/05/20 10/17/21 documented as of this encounter
--- OUTSIDE RECORDS SUMMARY | 2024-06-21 12:01 | XMS_ITS | Clinical Summary ---
Author Organization [facility] Address [address] [place] [address] Care Team Providers Care Riverine Assault Craft Crewman Name Role Phone Deonna Murdock M.D. Primary Care Provider [phone] Source Comments Patient records contain information from all sites at [facility]. For routine questions regarding patient records, call [phone] during business hours, M-F 8:00 AM - 5:00 PM Central Time. Record requests for emergency care only can be directed to [phone] at any time.[facility] Allergies Active Allergy Reactions Criticality [...] (09/18/2021): Added automatically from request for surgery [id number] Embolus Pulmonary Personal History 07/08/2020 Fistula Enterocutaneous 06/17/2020 Herniorrhaphy Incisional Status Post 06/13/2020 Dermatitis 10/14/2017 Cancer Colon Personal History 09/25/2017 Cancer Staging:Pathologic:Stage IIIC(pT3, pN2b, cM0) - Signed by César Ramachandran M.B.B.SAllyson on 10/01/2022 Overview (06/07/2020): Added automatically from request for surgery [id number] Impaired Fasting Glucose 08/23/2013 Hypertension Essential Primary [...] 0.6 oz pur e alcohol) 1- yearly [facility] Utilities Answer Date Recorded In the past 12 months has e [employer], gas, oil, or water [employer] threatened to shut off services in your [...] often do you attend chur ch or baptism services? 1 to 4 times per year 11/06/2021 Do you belong to any clubs o r organizations such as spiritism groups, unions, fraternal or athletic groups, or [...] Answer Date Recorded PHQ-2 Score 0 03/03/2024 [facility] [place] [facility] Occupational Stress Questionnaire Answer [...] your living situation today? I have a [facility] place to live 02/25/2024 Education Answer Date Recorded What is the highest level of school you have completed or the highest degree you have received? 12th grade 06/08/2020 Comments No Sex and Gender Information Value Date Recorded Sex Assigned at Female 12/02/2020 7:53 PM CDT Legal Sex Female 9:24 AM HYDROELECTRIC OPERATOR Gender Identity Female 05/29/2020 7:34 PM HYDROELECTRIC OPERATOR Sexual Orientation Straight 05/29/2020 7: 34 PM HYDROELECTRIC OPERATOR Last Filed Vital Signs Vital Sign Reading Time Taken Comments Blood Pressure 117/86 03/03/2024 2:45 PM HYDROELECTRIC OPERATOR Pulse 94 03/03/2024 2:45 PM HYDROELECTRIC OPERATOR Temperature 36.8 C (98.3 F) 03/03/2024 2:45 PM HYDROELECTRIC OPERATOR Respiratory Rate 18 03/03/2024 2:45 PM HYDROELECTRIC OPERATOR Oxygen Saturation 97% 03/03/2024 2:45 PM HYDROELECTRIC OPERATOR Inhaled Oxygen Concentration - - Weight 98.4 kg (217 lb) 03/03/2024 2:45 PM HYDROELECTRIC OPERATOR Height 157 cm (5' 1.81) 03/03/2024 2:45 PM HYDROELECTRIC OPERATOR Body Mass Index 39.93 03/03/2024 2:45 PM HYDROELECTRIC OPERATOR Plan of Treatment Upcoming Encounters Date Type Department Care Team (Late st Contact Info) Description 07/05/2024 8:30 AM CDT Appointment Department of Laboratory Medicine in [place], [place] [address] [place] [address] César Ramachandran M.D. [address] [place] [address] Health Maintenance Due Date Last [...] this topic Medical Devices Implanted Type Area Lead Mobile Developer Device Identifier Shelf Expiration Date Model / Serial / Lot Hardware E.G. Pins/Screws/Ro ds Hardware e.g. pins/screws/ rods Mouth Description:RETAINER Mesh Or Patch Mesh or Patch Abdomen Explanted Type Area Lead Mobile Developer Device Identifier Shelf Expiration Date Model / Serial / Lot Implantable Port Explanted:Qty: 1 on 10/22/2021 by Silvio Eduardo M.D. at [facility] Implantable Port Left: Chest [employer] 0 [...] Metabolic Panel (01/05/2024 10:45 AM CDT) Pathologist [facility] Potassium, P 3.9 3.6 - 5.2 [...] M.D. LAB BLOOD ADD-ON Final Resul t [facility] [address] [place] [address], [facility] [address] [place] [address] * BI Breast Screening Bilateral with Tomosynthesis [...] BI-RADS: 2: Benign. us Deonna Murdock M.D. [facility] BI PROCEDURES Final Res ult * COLONOSCOPY (11/28/2020 11:55 AM CDT) Narrative Procedure Note Sampson Redmond M.D. - 11/28/2020 11:55 AM CDT [facility] GI Patient Name: Cathie Zeng Procedure Date: [...] bowel preparation was evaluated using the BBPS ([place] Bowel Preparation Scale) with scores of: RightColon [...] M.D. LAB BLOOD ADD-ON Final Resu lt [facility] [address] [place] [address], [facility] [address] [place] [address] from Last 3 Months or Most Recently Relevant to Health Maintenance Insurance [facility] Care Teams Riverine Assault Craft Crewman Relationship Specialty Start Date End Date Deonna Murdock M.D. [address] [place] [id number] PCP - General Family Medicine 05/23/20
--- OUTSIDE RECORDS SUMMARY | 2024-06-21 12:01 | XMS_ITS | Clinical Summary ---
Author Organization [facility] Address Count includes the [facility] [place] [address] Care Team Providers Care Avionics Systems Engineer Name Role Phone Pcp, No Primary Care [...] on file Legal Sex Female 6:39 AM CIVIL DRAFTSMAN Gender Identity Not on file Sexual Orientation [...] Comments Blood Pressure 125/78 03/28/2019 1:11 PM CIVIL DRAFTSMAN Pulse 76 03/28/2019 1:11 PM CIVIL DRAFTSMAN Temperature 36.6 C (97.9 F) 12/08/2018 8:39 AM CDT Respiratory Rate 16 05/18/2018 2:19 PM CIVIL DRAFTSMAN Oxygen Saturation 99% 03/28/2019 1:11 PM CIVIL DRAFTSMAN Inhaled Oxygen Concentration - - Weight 82.4 kg (181 lb 9.6 oz) 03/28/2019 1:11 P M CIVIL DRAFTSMAN Height 157.2 cm (5' 1.9) 03/28/2019 1:11 PM CIVIL DRAFTSMAN Body Mass Index 33.32 03/28/2019 1:11 PM CIVIL DRAFTSMAN Plan of Treatment Health Maintenance Due Date [...] REFLEX MEASURED LDL Routine 03/02/2012 9:35 AM CIVIL DRAFTSMAN Screening, lipid from Last 3 Months or Most Recently Relevant to Health Maintenance Results * SCAN-MAMMOGRAPHY REPORT (09/07/2019 12:00 AM CDT) Anatomical Region Laterality Modality Other us Scanner OTHER Final Result * (ABNORMAL) LIPID PANEL W REFLEX MEASURED LDL (03/02/2012 9:35 AM CIVIL DRAFTSMAN) CHOLESTEROL,TOTAL 166 100 - 199 mg/dL 03/02/2012 10:03 AM [facility] TRIGLYCERIDES 175(H) <150 mg/dL 03/02/2012 10:03 AM [facility] HDL CHOLESTEROL 35(L) >40 mg/dL 2 10:03 AM [facility] NON-HDL CHOLESTEROL 131 <145 mg/dl 03/02/2012 10:03 AM [facility] CHOL/HDL RATIO 4.74(H) <4.50 03/02/2012 10:03 AM [facility] LDL CHOLESTEROL 96 <=130 mg/dL 03/02/2012 10:03 AM [facility] PATIENT STATUS FASTING 03/02/2012 10:03 AM [facility] Blood specimen (specimen) BLOOD SPECIMEN / Unknown 03/02/2012 9:35 AM CIVIL DRAFTSMAN 03/02/2012 9:35 AM CIVIL DRAFTSMAN us Brayan Mcghee MD CHEMISTRY Final Re sult [facility] [address] [place] [address] from Last 3 Months or [...] 8:50 PM 10/19/2017 8:26 PM Care Teams Avionics Systems Engineer Relationship Specialty Start Date End Date Pcp, No . PCP - General 03/27/24
--- OUTSIDE RECORDS SUMMARY | 2024-06-21 12:01 | XMS_ITS | Encounter Summary ---
Author Organization [facility] Address [address] [place] [address] Care Team Providers Care Jail Manager Name Role Phone Genet Hunt MD Unavailable [phone] Genet Hunt MD Primary Care Provider Zoraida Conner MD Unavailable [phone] Germaine Bernal MD Unavailable [phone] [place] [address] Primary Care Provider Tasneem Mills MD Unavailable [phone] Zoraida Conner MD Unavailable [phone] Star Montanez MD Unavailable [phone] Popeye Love MD Primary Care Provider [phone] Shan Coronel MD Unavailable Donato Mcgarry MD Unavailable [phone] Encounter Details Date Type Department Care Team (Late st Contact Info) Description 08/09/2019 MyC Medical Advice [facility] General Surgery [address] [facility] [address] [place] [address] Henny Good Social History Tobacco [...] on filedocumented in this encounter Care Teams Jail Manager Relationship Specialty Start Date End Date Genet Hunt MD PCP - General Student in organized health care education/training program 07/29/18 09/11/19 Germaine Bernal MD [address] [address] PCP - oncology 09/12/[address] [address] PCP - General 09/18/19 01/24/20 Popeye Love MD [address] [place] [address] PCP - General Family Medicine 01/25/20 Genet Hunt MD Resident Student in organized health care education/training program 07/29/18 Zoraida Conner MD [address] [facility] [address] [facility] [address] [place], [place] [address] Gynecologic Oncology 07/29/18 Tasneem Mills MD [address] [facility] [address] [place], [place] [address] Assigned Endocrinology Provider 01/12/20 08/03/20 Zoraida Conner MD [address] [facility] [address] [place], [place] [address] Assigned Cancer Care Provider 01/12/20 02/03/20 Star Montanez MD [address] [facility] [address] [place], [place] [address] Assigned Surgical Provider 01/12/20 06/04/20 Shan Coronel MD [address] [facility] [address] [place], [place] [address] Assigned Cancer Care Provider 02/04/20 07/12/21 Donato Mcgarry MD [address] [facility] [address] [place], [place] [address] Assigned Surgical Provider 06/05/20 10/17/21 documented as of this encounter
--- OUTSIDE RECORDS SUMMARY | 2024-06-21 12:02 | XMS_ITS | Encounter Summary ---
Author Organization [facility] Address [address] [facility] [place] [address] Care Team Providers Care Engraver Wood Name Role Phone Evantrav Genet Kumar MD Unavailable [phone] Zoraida Conner MD Unavailable [phone] Germaine Bernal MD Unavailable [phone] [facility] Primary Care Provider Tasneem Mills MD Unavailable [phone] Zoraida Conner MD Unavailable Star Montanez MD Unavailable [phone] Popeye Love MD Primary Care Provider [phone] Shan Coronel MD Unavailable Donato Mcgarry MD Unavailable [phone] Encounter Details Date Type Department Care Team (Late st Contact Info) Description 01/08/2020 [facility] [address] [place] [address] Kelsie Hendrix, RN Social History [...] on filedocumented in this encounter Care Teams Engraver Wood Relationship Specialty Start Date End Date Germaine Bernal MD [address] [address] PCP - oncology 09/12/[address] [address] PCP - General 09/18/19 01/24/20 Popeye Love MD [address] [facility] [address] [place], [place] [address] PCP - General Family Medicine 01/25/20 Genet Hunt MD Resident Student in organized health care education/training program 07/29/18 Zoraida Conner MD [address] [facility] [address] [place] [address] Gynecologic Oncology 07/29/18 Tasneem Mills MD [address] [facility] [address] [place] [address] Assigned Endocrinology Provider 01/12/20 08/03/20 Zoraida Conner MD [address] [facility] [address] [place] [address] Assigned Cancer Care Provider 01/12/20 02/03/20 Star Montanez MD [address] [facility] [address] [place] [address] Assigned Surgical Provider 01/12/20 06/04/20 Shan Coronel MD [address] [facility] [address] [place] [address] Assigned Cancer Care Provider 02/04/20 07/12/21 Donato Mcgarry MD [address] [facility] [address] [place] [address] Assigned Surgical Provider 06/05/20 10/17/21 documented as of this encounter
--- OUTSIDE RECORDS SUMMARY | 2024-06-21 12:02 | XMS_ITS ---
Author Organization [facility] Address [address] [facility] 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 Treatments may have been administered in another system. Lifetime Dose Tracking * Chemical Lifetime Dose Automatic Entry Manual Entr y DLP 200 mGy*cm 200 mGy*cm 0 mGy*cm
--- OUTSIDE RECORDS SUMMARY | 2024-06-21 12:02 | XMS_ITS | Encounter Summary ---
Author Organization [facility] Address [address] [place] [address] Care Team Providers Care Accounting Supervisor Name Role Phone Genet Hunt MD Unavailable [phone] Genet Hunt MD Primary Care Provider Zoraida Conner MD Unavailable [phone] Germaine Bernal MD Unavailable [phone] [place] [address] Primary Care Provider Tasneem Mills MD Unavailable [phone] Zoraida Conner MD Unavailable [phone] Star Montanez MD Unavailable [phone] Popeye Love MD Primary Care Provider [phone] Shan Coronel MD Unavailable Donato Mcgarry MD Unavailable [phone] Reason for Visit * Reason Onset Date Comments Erroneous encounter-disregard 08/02/2018 Encounter Details Date Type Department Care Team (Late st Contact Info) Description 08/02/2018 Telephone [facility] [address] [facility] [address] [place] [id number] Jennie Vaughn, [address] [place], [place] [address] Erroneous encounter-disregard Social History Tobacco Use Types [...] on filedocumented in this encounter Care Teams Accounting Supervisor Relationship Specialty Start Date End Date Genet Hunt MD PCP - General Student in organized health care education/training program 07/29/18 09/11/19 Germaine Bernal MD [address] [address] PCP - oncology 09/12/[address] [address] PCP - General 09/18/19 01/24/20 Popeye Love MD [address] [place] [address] PCP - General Family Medicine 01/25/20 Genet Hunt MD Resident Student in organized health care education/training program 07/29/18 Zoraida Conner MD [address] [facility] [address] [place] [address] Gynecologic Oncology 07/29/18 Tasneem Mills MD [address] [facility] [address] [place] [address] Assigned Endocrinology Provider 01/12/20 08/03/20 Zoraida Conner MD [address] [facility] [address] [place] [address] Assigned Cancer Care Provider 01/12/20 02/03/20 Star Montanez MD [address] [facility] [address] [place], [place] [address] Assigned Surgical Provider 01/12/20 06/04/20 Shan Coronel MD [address] [facility] [address] [place], [place] [address] Assigned Cancer Care Provider 02/04/20 07/12/21 Donato Mcgarry MD [address] [facility] [address] [place], [place] [address] Assigned Surgical Provider 06/05/20 10/17/21 documented as of this encounter
--- OUTSIDE RECORDS SUMMARY | 2024-06-21 12:02 | XMS_ITS | Clinical Summary ---
Author Organization [facility] Address [address] [facility] 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 Candidal intertrigo 10/15/2017 Colostomy [...] Comments Blood Pressure 137/82 04/16/2020 12:14 PM PERFECT BINDER OPERATOR Pulse 77 04/16/2020 12:14 PM PERFECT BINDER OPERATOR Temperature 36.4 C (97.6 F) 04/16/2020 12:14 PM PERFECT BINDER OPERATOR Respiratory Rate 16 01/25/2020 6:00 PM PERFECT BINDER OPERATOR Oxygen Saturation 98% 04/16/2020 12: 14 PM PERFECT BINDER OPERATOR Inhaled Oxygen Concentration - - Weight 71.6 kg (157 lb 14.4 oz) 021 12:14 PM PERFECT BINDER OPERATOR Height 157.5 cm (5' 2) 04/16/2020 12:1 4 PM PERFECT BINDER OPERATOR Body Mass Index 28.88 04/16/2020 12:14 PM PERFECT BINDER OPERATOR Plan of Treatment Not on file Care Teams Ethnographic Materials Conservator Relationship Specialty Start Date End Date Germaine Bernal MD [employer] [address] [place] [address] PCP - oncology 09/12/19 Popeye Love MD [employer] [address] [place] [address] PCP - General Family Medicine 01/25/20 Genet Hunt MD Resident Student in organized health care education/training program 07/29/18 Zoraida Conner MD [address] [place] [address] Gynecologic Oncology 07/29/18
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
== END 2024-06-21 12:55 | disposition home or self-care (01) ==
PROVIDERS: Emergency Provider Family Medicine; PCP Family Medicine
DX: R07.89 Other chest pain (principal); V43.52XA Car driver injured in collision with other type car in traffic accident, initial encounter
CPT/HCPCS: 71101; 93005; 99283; 99284; 99291; A9270; G0390